=== PATIENT | female | born 1940 | race Caucasian/White ===

== ENCOUNTER 2016-10-06 14:12 | Inpatient (IN) ==
[2016-10-06] MEDS ORDERED: SOLU-MEDROL IV ONE (15:44)
[2016-10-06] MEDS ORDERED: DESYREL PO PRN (15:44)
[2016-10-06] MEDS ORDERED: ZOFRAN IV PRN (15:44)
[2016-10-06] MEDS ORDERED: TYLENOL PO PRN (15:44)
[2016-10-06 16:39] LABS: MANUAL DIFF NEEDED? NO
[2016-10-06 16:43] LABS: BASO% 0.7 % (0.0-0.8); EOS# 0.13 X1000 (0.0-0.7); EOS% 4.3 % (0.0-10.0); HEMATOCRIT 36.1 % (37.0-47.0); HEMOGLOBIN 11.2 g/dL (12.0-16.0); LYMPH# 0.68 X1000 (1.2-3.4); LYMPH% 22.5 % (20.5-51.1); MCH 28.5 PG (27-31); MCV 91.9 FL (81-99); MONO# 0.35 X1000 (0.11-0.59); MONO% 11.6 % (1.7-9.3); NEUT% 60.9 % (42.2-75.2); PLT 150 X1000 (130-400); RBC 3.93 XMIL (4.2-5.4)
[2016-10-06 16:57] LABS: CALCIUM 8.9 mg/dL (8.8-10.2); POTASSIUM 4.3 mmol/L (3.5-5.1)
[2016-10-06] MEDS: DUONEB (A & A) INH SCH ×3 (17:08→22:50)
[2016-10-06 17:22] LABS: BLOOD TYPE ARTERIAL; SAMPLE BLOOD
[2016-10-06 17:25] LABS: ALLEN TEST YES; BE 5.1 mmoll (-3.0-3.0); DRAW SITE R RADIAL; METHB 1.1 % (0.0-1.5); O2(CT) 14.7 mL/dL (15.0-23.0); PO2(98.6) 54 mmHg (60-100); SAO2 93.8 % (95.0-100.0); THB 11.6 g/dL (11.5-17.4); pH(98.6) 7.38 (7.35-7.45)
[2016-10-06 17:36] LABS: MODALITY ROOM AIR; PCO2(98.6) 53 mmHg (35-45)
[2016-10-06] MEDS: NEURONTIN PO SCH (18:37)
[2016-10-06] MEDS: NS 1,000 ML IV SCH (18:41)
[2016-10-06] MEDS: LEVAQUIN 250 MG/D5W 250 MG/50 ML IVPB IV SCH (18:41)
[2016-10-06] MEDS: LOVENOX SUBQ SCH (18:41)
[2016-10-06] MEDS ORDERED: SOLU-MEDROL ONE (18:42)
[2016-10-06] MEDS: MORPHINE IR PO SCH (21:34)
[2016-10-06] MEDS: ELAVIL PO SCH (21:34)
[2016-10-06] MEDS: PRAVACHOL PO SCH (21:34)
[2016-10-06] MEDS: SINGULAIR PO SCH (21:34)
[2016-10-07] MEDS: DUONEB (A & A) INH SCH ×6 (03:27→22:37)
[2016-10-07] MEDS: NS 1,000 ML IV SCH ×2 (05:27→21:36)
[2016-10-07] MEDS: PRILOSEC PO SCH ×2 (05:29→08:59)
--- NOTE | 2016-10-07 08:11 | PROGRESS NOTE ---
DATE: 10/07/2016 SUBJECTIVE: Mrs. Ace was admitted to [facility] with acute respiratory failure with hypoxia secondary to acute COPD exacerbation. Her chest x-ray from 10/05/2016 demonstrates significant pulmonary fibrosis. She is breathing more comfortably this morning. Her O2 saturations are ranging from 94%-95% on 2 L of O2. She still has a persistent nonproductive cough, pleuritic chest pain, and dyspnea with ambulation to the bathroom. Her blood pressure is fluctuating. Systolic blood pressures have been in the 150s, whereas her diastolic blood pressures have ranged from 68-71. She denies any chest pain, palpitations, or anginal equivalents. OBJECTIVE: Temperature 98.1 degrees, pulse 83, BP 152/71. CV: Regular rate and rhythm. Lungs: Distant breath sounds with scattered wheezing with forced expiration. Abdomen soft, nontender, with active bowel sounds. Extremities without edema. LABORATORY DATA: A CBC demonstrated a white count of 3.02. Hemoglobin 11.2. Hematocrit 36.1, and a platelet count of 150,000. Arterial blood gases on admission demonstrated pH of 7.38, pCO2 of 53, PO2 of 54 and an O2 saturation of 93.8% on room air. A BMP demonstrated the following: Sodium 138, potassium 4.3. BUN 18, creatinine 1.1, and glucose 112. ASSESSMENT AND PLAN: 1. Acute respiratory failure with hypoxia secondary to acute chronic obstructive pulmonary disease exacerbation with tracheobronchitis. 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 We will continue supplemental O2, DuoNeb nebulizer treatments, IV Solu-Medrol and IV Levaquin pending cultures. I will recheck a PA and lateral chest x-ray today. I am going to add Symbicort 160/4.5 two puffs b.i.d. at home. We will recheck an Arterial Blood Gas today. 2. Hypertension. Her blood pressure is a little bit too high. I will increase the lisinopril to 10 mg daily. cc: Lupe Galindo MD
[2016-10-07] MEDS: MORPHINE IR PO SCH ×2 (08:56→21:32)
[2016-10-07] MEDS: NEURONTIN PO SCH ×2 (08:56→18:22)
[2016-10-07] MEDS: MOBIC PO SCH (08:57)
[2016-10-07] MEDS: SOLU-MEDROL IV SCH ×3 (08:59→21:35)
[2016-10-07] MEDS: PRINIVIL PO SCH (08:59)
[2016-10-07] MEDS ORDERED: PRINIVIL PO SCH (09:00)
--- NOTE | 2016-10-07 11:04 | Diag Imaging Result Doc PS360 ---
EXAM: CHEST-2 VIEWS HISTORY: COPD TECHNIQUE: Two views COMPARISON: 10/05/2016 FINDINGS: The lungs are well expanded. The heart is not enlarged. The vessels are not distended. There are no infiltrates. No pleural effusions. There are increased interstitial markings in the right base which are unchanged. The right sixth rib has been resected. There has been prior surgery to the lower neck. IMPRESSION: Stable chest. Electronically signed by Nithin Caraballo 10/07/2016 11:02 AM
[2016-10-07] MEDS: LOVENOX SUBQ SCH (18:27)
[2016-10-07] MEDS: LEVAQUIN 250 MG/D5W 250 MG/50 ML IVPB IV SCH (18:27)
[2016-10-07] MEDS: SYMBICORT 160/4.5 MICROGM INHALER INH SCH (19:16)
[2016-10-07] MEDS: PRAVACHOL PO SCH (21:32)
[2016-10-07] MEDS: SINGULAIR PO SCH (21:33)
[2016-10-07] MEDS: ELAVIL PO SCH (21:33)
[2016-10-08] MEDS: DUONEB (A & A) INH SCH ×5 (03:38→19:47)
[2016-10-08] MEDS: PRILOSEC PO SCH (06:47)
[2016-10-08] MEDS: SOLU-MEDROL IV SCH ×3 (06:48→22:00)
[2016-10-08] MEDS: SYMBICORT 160/4.5 MICROGM INHALER INH SCH ×2 (07:47→19:47)
--- NOTE | 2016-10-08 08:35 | PROGRESS NOTE ---
DATE: 10/08/2016 SUBJECTIVE: Ms. Ace was admitted to [facility] with acute respiratory failure with hypoxia secondary to acute chronic obstructive pulmonary disease exacerbation with tracheobronchitis. Clinically, she continues to improve. She reports that her breathing has improved. She still has some shortness of breath, even at rest. Her O2 saturations dropped to 87% on room air earlier this morning. She has a persistent nonproductive cough. She has a history of hypertension. We increased the lisinopril to 10 mg daily. Her blood pressure is trending down and looks much better. OBJECTIVE: Vital signs: Temperature 98.5 degrees, pulse 71, respirations 18, BP 137/74. CV: Regular rate and rhythm. Lungs: Distant breath sounds. The wheezing has nearly resolved. Abdomen: Soft, nontender, with active bowel sounds. ASSESSMENT AND PLAN: 1. Acute respiratory failure with hypoxia secondary to acute chronic obstructive pulmonary disease exacerbation with tracheobronchitis. She is an immunocompromised host. She wears nocturnal home oxygen. I believe that she will need oxygen continuously. Her oxygen saturations dropped to 87% today on room air. I will continue supplemental oxygen, DuoNeb nebulizer treatments, intravenous Solu-Medrol and intravenous Levaquin. We will also continue Symbicort. I suspect that we will try a trial of Brovana nebulized twice daily and ipratropium nebulized three times a day when she goes home. 2. Hypertension. Her blood pressure looks much better. I will continue lisinopril 10 mg daily. cc: Lupe Galindo MD
[2016-10-08] MEDS: MORPHINE IR PO SCH ×2 (08:47→22:07)
[2016-10-08] MEDS: NEURONTIN PO SCH ×3 (08:47→22:06)
[2016-10-08] MEDS: MOBIC PO SCH (08:48)
[2016-10-08] MEDS: NS 1,000 ML IV SCH ×2 (08:48→22:31)
[2016-10-08] MEDS: PRINIVIL PO SCH (08:48)
[2016-10-08] MEDS: PRAVACHOL PO SCH (22:06)
[2016-10-08] MEDS: SINGULAIR PO SCH (22:07)
[2016-10-08] MEDS: ELAVIL PO SCH (22:07)
[2016-10-08] MEDS: LOVENOX SUBQ SCH (22:08)
[2016-10-08] MEDS: LEVAQUIN 250 MG/D5W 250 MG/50 ML IVPB IV SCH (22:08)
[2016-10-09] MEDS: DUONEB (A & A) INH SCH ×7 (00:50→23:21)
[2016-10-09] MEDS: SOLU-MEDROL IV SCH ×3 (07:01→20:45)
[2016-10-09] MEDS: PRILOSEC PO SCH (07:01)
[2016-10-09] MEDS: SYMBICORT 160/4.5 MICROGM INHALER INH SCH ×2 (07:59→19:40)
[2016-10-09] MEDS: NEURONTIN PO SCH ×3 (09:31→16:02)
[2016-10-09] MEDS: PRINIVIL PO SCH (09:31)
[2016-10-09] MEDS: LASIX PO SCH (09:31)
[2016-10-09] MEDS: MORPHINE IR PO SCH ×2 (09:31→20:46)
[2016-10-09] MEDS: MOBIC PO SCH (09:32)
[2016-10-09] MEDS ORDERED: MIRALAX PO ONE (09:42)
[2016-10-09] MEDS ORDERED: DULCOLAX PR ONE (09:43)
--- NOTE | 2016-10-09 09:46 | PROGRESS NOTE ---
DATE: 10/09/2016 SUBJECTIVE: Ms. Ace was admitted to [facility] with acute respiratory failure with hypoxia secondary to acute chronic obstructive pulmonary disease exacerbation with tracheobronchitis. She reports that she is breathing more comfortably, but she still has periods of dyspnea. Her O2 saturation dropped to 88% on room air this morning. Her cough has largely resolved. She denies any PND, orthopnea, or increasing peripheral edema. OBJECTIVE: Vital Signs: Her blood pressure is still fluctuating. Systolic blood pressures are ranging from 152 to 168, whereas her diastolic blood pressures are in the 60s and 80s. She denies any chest pain, palpitations, or anginal equivalents. Cardiovascular: Regular rate and rhythm. Lungs: Distant breath sounds, with increased period of expiration. Abdomen: Soft, nontender, with active bowel sounds. ASSESSMENT AND PLAN: Acute respiratory failure, with hypoxia secondary to acute chronic obstructive pulmonary disease exacerbation. She is an immunocompromised host. She has desaturated to 88% on room air. I believe that she will need continuous home oxygen. We will continue supplemental O2, DuoNeb nebulizer treatments, and I will back down on the IV Solu-Medrol to 60 mg q.8 hours. She really does not have any signs of congestive heart failure, such as PND, orthopnea, or increasing peripheral edema. Certainly, she could have some diastolic dysfunction. I am going to check a 2D echocardiogram with color Doppler and spectral flow Doppler studies in the morning. She is not having any type of chest pain, palpitations, or anginal equivalents. We certainly can arrange for a Persantine [facility] GXT as an outpatient. cc: Lupe Galindo MD
[2016-10-09] MEDS: NS 1,000 ML IV SCH (11:13)
[2016-10-09] MEDS: LOVENOX SUBQ SCH (16:02)
[2016-10-09] MEDS: LEVAQUIN 250 MG/D5W 250 MG/50 ML IVPB IV SCH (20:45)
[2016-10-09] MEDS: SINGULAIR PO SCH (20:45)
[2016-10-09] MEDS: ELAVIL PO SCH (20:45)
[2016-10-09] MEDS: PRAVACHOL PO SCH (20:50)
[2016-10-10] MEDS: DUONEB (A & A) INH SCH ×6 (03:26→23:05)
[2016-10-10] MEDS: NS 1,000 ML IV SCH ×2 (04:29→13:45)
[2016-10-10] MEDS: SOLU-MEDROL IV SCH ×4 (04:29→21:59)
[2016-10-10] MEDS: PRILOSEC PO SCH (06:25)
[2016-10-10 06:41] LABS: HEMATOCRIT 35.8 % (37.0-47.0); MCH 29.1 PG (27-31); MCHC 30.7 g/dL (33-37); MCV 94.7 FL (81-99); MPV 11.5 FL (7.4-10.4); RBC 3.78 XMIL (4.2-5.4)
[2016-10-10 07:13] LABS: AGAP 9; BUN 26 mg/dL (8-22); CHLORIDE 102 mmol/L (98-107); COSMO 286; POTASSIUM 4.4 mmol/L (3.5-5.1); SODIUM 140 mmol/L (136-145); TCO2 29 mmol/L (25-35)
[2016-10-10] MEDS: SYMBICORT 160/4.5 MICROGM INHALER INH SCH ×2 (07:55→19:17)
--- NOTE | 2016-10-10 08:46 | PROGRESS NOTE ---
DATE: 10/10/2016 SUBJECTIVE: Ms. Ace was admitted to [facility] with an acute COPD exacerbation. Clinically, she continues to improve. She is breathing more comfortably and maintaining O2 saturations of 96 to 97% on 2 L of O2. She did drop to 88% on 10/09/2016 at 7:59 at rest. Her O2 saturation of 88% was on room air. She dropped to 87% on room air on 10/08/2016 at 7:48. She has a longstanding history of hypertension. Her blood pressure is still fluctuating. She denies any chest pain, palpitations, or anginal equivalents. PHYSICAL EXAMINATION: Vital Signs: She is afebrile. Pulse 67, respirations 16, BP 183/92. CV: Regular rate and rhythm. Lungs: Distant breath sounds with increased period of expiration. Abdomen: Soft, nontender, with active bowel sounds. ASSESSMENT AND PLAN: 1. Acute chronic obstructive pulmonary disease exacerbation. She had an oxygen saturation of 88% on room air, in chronic stable condition within 48 hours of discharge. I believe that she will need oxygen at 2 L per nasal cannula continuously. We will add Brovana nebulizer treatments twice a day and ipratropium nebulizer treatments three times a day at home. We will continue to taper the steroids. She really does not have any suggestion of paroxysmal nocturnal dyspnea, orthopnea, or increasing peripheral edema. I am going to check an echocardiogram just to make sure there is no suggestion of diastolic dysfunction. 2. Hypertension. Her blood pressure is still too high. I will increase the lisinopril to 10 mg twice a day. cc: Lupe Galindo MD
[2016-10-10] MEDS: MOBIC PO SCH (08:47)
[2016-10-10] MEDS: NEURONTIN PO SCH ×3 (08:47→16:00)
[2016-10-10] MEDS: PRINIVIL PO SCH ×2 (08:47→21:54)
[2016-10-10] MEDS: MORPHINE IR PO SCH ×2 (08:48→21:55)
[2016-10-10] MEDS: LASIX PO SCH (08:48)
--- NOTE | 2016-10-10 13:59 | Diag Imaging Result Doc PS360 ---
EXAM: CT HEART FOR CALCIUM SCORE HISTORY: Diastolic dysfunction TECHNIQUE: ECG gated CT of the heart for calcium scoring. COMPARISON: None. FINDINGS: Calcium score is 270. This falls in the moderate calcification category. Calcifications are found in the left anterior descending artery. The heart is mildly enlarged. There are scattered calcified granuloma and a calcified right hilar lymph nodes. Increased markings in the lower lungs believed to be secondary to atelectasis. No pleural effusions. IMPRESSION: Calcium score equals 270 which falls in the moderate calcification category. A preliminary report was called to Dr. Galindo. Electronically signed by Nithin Caraballo 10/10/2016 1:40 PM
[2016-10-10] MEDS: LOVENOX SUBQ SCH (16:01)
--- NOTE | 2016-10-10 16:30 | ECHO REPORT ---
ORDER DATE: 10/10/2016 ECHOCARDIOGRAPHIC MEASUREMENTS: 1. Interventricular septum 1.2. 2. Left ventricular posterior wall 1.2. 3. Diastolic diameter 4.4. 4. Left atrium 4.1. 5. Aorta 3.3. SUMMARY OF 2-DIMENSIONAL IMAGIN. Aortic valve leaflets were trileaflet, sclerosed, opening normally. Pulmonic valve was normal. Tricuspid valve was normal. There is some mild pulmonary regurgitation. 2. Normal left ventricular cavity size. Estimated ejection fraction of 60-65% 3. There is left atrial enlargement. 4. Mitral valve leaflets are mildly thickened, opening normally. Tricuspid valve was normal. 5. Doppler studies revealed [id number] mitral regurgitation. There is peak velocity across the aortic valve less than 2 m/sec. There is no aortic stenosis or regurgitation. There is mild tricuspid regurgitation. Peak velocity across the tricuspid valve was 3.5 m/sec. Pulmonary artery systolic pressure of 57 mmHg. There is pulmonary arterial hypertension. 6. There is no pericardial effusion or obvious intracardiac mass or thrombus seen. cc: MD Lupe Blue MD
[2016-10-10] MEDS: ELAVIL PO SCH (21:54)
[2016-10-10] MEDS: LEVAQUIN 250 MG/D5W 250 MG/50 ML IVPB IV SCH (21:54)
[2016-10-10] MEDS: PRAVACHOL PO SCH (21:55)
[2016-10-10] MEDS: SINGULAIR PO SCH (21:55)
[2016-10-11] MEDS: DUONEB (A & A) INH SCH ×3 (03:52→11:19)
--- NOTE | 2016-10-11 05:16 | EKG Report ---
Test Performed on : 10/10/2016 12:37:44 PM Test Reason : Chest heaviness Blood Pressure : / mmHG Vent. Rate : 075 BPM Atrial Rate : 075 BPM P-R Int : 164 ms QRS Dur : 104 ms QT Int : 394 ms P-R-T Axes : 025 -16 013 degrees QTc Int : 439 ms Normal sinus rhythm. with sinus arrhythmia. Voltage criteria for left ventricular hypertrophy Abnormal ECG When compared with ECG of 31-MAR-2015 12:01, No significant change was found Confirmed by Rojas Rasmussen DO ([id number]) on 10/13/2016 5:19:56 PM
[2016-10-11] MEDS: PRILOSEC PO SCH (06:05)
[2016-10-11] MEDS: SOLU-MEDROL IV SCH ×2 (06:05→15:23)
[2016-10-11] MEDS ORDERED: LEXISCAN ONE (08:08)
[2016-10-11] MEDS ORDERED: AMINOPHYLLINE ONE (08:36)
[2016-10-11] MEDS: MOBIC PO SCH (10:54)
[2016-10-11] MEDS: NEURONTIN PO SCH (10:54)
[2016-10-11] MEDS: LASIX PO SCH (10:54)
[2016-10-11] MEDS: PRINIVIL PO SCH (10:54)
[2016-10-11] MEDS: MORPHINE IR PO SCH (10:55)
[2016-10-11] MEDS: SYMBICORT 160/4.5 MICROGM INHALER INH SCH (11:19)
[2016-10-11 11:29] VITALS: BP 156/74
--- NOTE | 2016-10-12 08:19 | DISCHARGE SUMMARY ---
ADMISSION DATE: 10/06/2016 DISCHARGE DATE: 10/11/2016 DISCHARGE DIAGNOSES: 1. Acute respiratory failure with hypoxemia. 2. Acute chronic obstructive pulmonary disease exacerbation. 3. Mixed hyperlipidemia. 4. Essential hypertension. 5. Chronic low back pain secondary to lumbar spinal stenosis. DISCHARGE INSTRUCTIONS: 1. Return to clinic in 1 week to see me, Dr. Tyree Galindo. 2. Activity as tolerated. 3. Healthy heart diet. MEDICATIONS: Lisinopril 10 mg b.i.d., Mobic 7.5 mg daily, pravastatin 10 mg at bedtime, trazodone 50 mg at bedtime p.r.n. insomnia, Symbicort 160/4.5 two puffs b.i.d., Lasix 40 mg daily, amlodipine 5 mg daily, amitriptyline 50 mg at bedtime, Singulair 10 mg daily, gabapentin 800 mg t.i.d., MiraLAX 17 grams in 8 ounces of water daily, MSIR 15 mg b.i.d., omeprazole 20 mg daily, aspirin 325 mg daily. PHYSICAL EXAMINATION: General Appearance: This is a well-developed, well-nourished, 76-year-old, lady in no apparent distress. Vital Signs: She is afebrile. Vital signs are stable. Cardiovascular: Regular rate and rhythm. Lungs: Clear with distant breath sounds. Abdomen: Soft, nontender, with active bowel sounds. HOSPITAL COURSE: [facility] failure secondary to acute chronic obstructive pulmonary disease exacerbation. In my office, her O2 saturation was 83% on room air. The patient [facility]. We treated her with continuous oxygen, DuoNeb nebulizer treatments, IV Solu-Medrol, and added Symbicort 160/4.5 two puffs b.i.d. Over the course of her hospitalization we gradually weaned her off the steroids. We continued her on the Symbicort and the nebulizer treatments. On 10/10/2016 she had an oxygen saturation of 88% on room air in chronic stable condition within 48 hours of discharge. We felt that she would need continuous home oxygen at 2 L per nasal cannula. We are also going to try a trial of Brovana nebulized b.i.d. and ipratropium nebulized t.i.d. at home. She does have a longstanding history of hypertension. We did increase the lisinopril to 10 mg b.i.d. with stabilization of her blood pressure. During her hospitalization, she did have atypical chest pain. An EKG demonstrated sinus bradycardia without ischemic changes. A CT cardiac calcium score showed moderate calcium deposition in the LAD. A subsequent Persantine [facility] GXT demonstrated no reversible ischemia. Having reached maximum hospital benefit, the patient was felt stable for discharge and she will follow up with me in 1 week in anticipation of a transition of care visit. cc: Lupe Galindo MD
--- NOTE | 2016-10-12 22:30 | Diag Imaging Result Document ---
PROCEDURE NAME: MYOCARDIAL PERF SCAN, STR/REST - 10/11/2016 SUMMARY: The patient was administered 13.9 millicuries of technetium-99m sestamibi, after which resting cardiac images were obtained. The patient was subsequently administered Lexiscan, after which the heart rate went from 67 beats per minute to 87 beats per minute and the blood pressure went from 208/107 to 174/101. With Lexiscan, the patient denied chest discomfort. Following the administration of Lexiscan, the patient was administered 36.8 millicuries of technetium-99m labeled sestamibi, after which gated stress cardiac images were obtained. Baseline ECG demonstrated normal sinus rhythm and mild delay in precordial R-wave progression. With Lexiscan, there were no diagnostic ST-segment changes. SPECT images were reconstructed in the short, horizontal long, and vertical long axis. These images demonstrated a small area of mildly diminished activity in the apex of left ventricle stress images which appears similar on resting images. No significant reversibility is evident. Gated images demonstrate a calculated left ventricular ejection fraction of 77% with symmetrical wall motion/thickening. CONCLUSIONS: 1. Adequate response to Lexiscan. 2. Clinically negative for chest pain. 3. Electrocardiographically negative for Lexiscan-induced myocardial ischemia. 4. Lexiscan sestamibi images demonstrate small fixed area of mildly diminished activity in the apex with corresponding preserved regional wall motion probably due to soft tissue attenuation artifact. There is no convincing scintigraphic evidence of inducible myocardial ischemia. Normal left ventricular systolic function demonstrated. cc: MD Lupe Joe MD
== END 2016-10-11 15:37 | disposition home or self-care (01) ==
LOC: DIRADM 14:12 → 3N 14:48
PROVIDERS: ADMIT Internal Medicine; ATTEND Internal Medicine